=== PATIENT | female | born 1945 | race Caucasian/White ===

== ENCOUNTER 2019-10-09 06:00 | Day surgery (SDC) | payer OTHER, MEDICARE ==
[2019-10-08 14:50] LABS: BASOPHIL % 0.4 % (0-2); PLATELET COUNT 292 x10^3mcL (130-400); RED CELL DISTRIBUTION WIDTH 14.5 % (11.5-14.5)
[2019-10-08 15:00] LABS: CALCIUM 8.8 mg/dL (8.5-10.1); CARBON DIOXIDE 28.5 mmol/L (21-32); CHLORIDE SERUM 97 mmol/L (98-107); CREATININE SERUM 0.8 mg/dL (0.6-1.0); GLUCOSE SERUM 110 mg/dL (74-106); POTASSIUM SERUM 3.6 mmol/L (3.5-5.1); SODIUM SERUM 134 mmol/L (136-145)
[2019-10-08 15:16] LABS: microscopic required? YES; urine erythrocyte 3+ (NEGATIVE)
[~2019-10-09] VITALS: Ht 167.6 cm; Wt 94.3 kg
[2019-10-09 06:21] VITALS: BP 138/75
[2019-10-09 13:31] VITALS: BP 155/80
== END 2019-10-09 13:30 | disposition home or self-care (01) ==
LOC: DS 06:00 → OR 07:30 → GI 07:30 → DS 13:30
PROVIDERS: ATTEND Urology
DX: N13.2 Hydronephrosis with renal and ureteral calculous obstruction (principal); Z11.59 Encounter for screening for other viral diseases; E66.9 Obesity, unspecified; I10 Essential (primary) hypertension; F41.9 Anxiety disorder, unspecified; K21.9 Gastro-esophageal reflux disease without esophagitis
CPT/HCPCS: 51610; C1769; J0330; J0696; J1170; J1885; J2175; J2405; J2704; J2710; J3490; J7030; J7120; Q0092; Q9967; U0003-CS